=== PATIENT | male | born 1995 | race American Indian/Alaskan Native ===

== ENCOUNTER 2016-05-05 10:42 | Emergency (ER) | payer SELFPAY ==
[2016-05-05 10:51] VITALS: BP 138/80
--- NOTE | 2016-05-05 13:03 | Emergency Department Report ---
- General Chief Complaint: Upper Respiratory Infection Stated Complaint: NASAL CONGESTIONS/COLD/UPPER RESPITORY Time Seen by Provider: 05/05/16 12:05 Source: patient Mode of arrival: Ambulatory Limitations: No Limitations - History of Present Illness Initial Comments: 20-year-old male past medical history sinusitis presents with complaint of several days of worsening sinus congestion. Patient states he was taking Flonase and Zyrtec is seen with minimal to no relief of his congestion. Patient denies any fever or chills no earache denies any sore throat no chest pain no shortness of breath. Denies any nausea or vomiting or body aches. Had episode of sinusitis several months ago. States he has had clear nasal drainage bilaterally. Patient sounds nasal complaining of sinus congestion as I interview him. MD Complaint: rhinorrhea, nasal congestion Onset/Timin -: days(s) Severity: moderate Quality: aching Worsens With: nothing Associated Symptoms: rhinorrhea, nasal congestion - Related Data Previous Rx's Medication Instructions Recorded Last Taken Type Naproxen [Naprosyn TAB] 375 mg PO BID #20 tablet 02/08/14 Unknown Rx Cetirizine HCl [ZyrTEC] 10 mg PO DAILY #30 capsule 01/18/16 Unknown Rx Fluticasone [Flonase] 1 spray NS QDAY #1 bottle 01/18/16 Unknown Rx Ibuprofen [Motrin 600 MG tab] 600 mg PO Q8H PRN #20 tablet 01/18/16 Unknown Rx Amoxicillin/K Clav Tab [Augmentin 1 tab PO Q12HR #20 tab 05/05/16 Unknown Rx 875 mg] Azelastine 0.1% (Nf) [Astelin (Nf)] 137 mcg NS QDAY PRN #1 bottle 05/05/16 Unknown Rx Loratadine [Claritin] 10 mg PO DAILY PRN #14 tablet 05/05/16 Unknown Rx Naproxen [Naprosyn TAB] 375 mg PO BID PRN #30 tablet 05/05/16 Unknown Rx Allergies Allergy/AdvReac Type Severity Reaction Status Date / Time No Known Allergies Allergy Unverified 02/08/14 14:49 ED Review of Systems ROS: Stated complaint: NASAL CONGESTIONS/COLD/UPPER RESPITORY Other details as noted in HPI Constitutional: denies: chills, fever Eyes: denies: eye pain, eye discharge, vision change ENT: as per HPI, congestion. denies: ear pain, throat pain Respiratory: denies: cough, shortness of breath, wheezing Cardiovascular: denies: chest pain, palpitations Endocrine: no symptoms reported Gastrointestinal: denies: abdominal pain, nausea, diarrhea Genitourinary: denies: urgency, dysuria Musculoskeletal: denies: back pain, joint swelling, arthralgia Skin: denies: rash, lesions Neurological: denies: headache, weakness, paresthesias Psychiatric: denies: anxiety, depression Hematological/Lymphatic: denies: easy bleeding, easy bruising ED Past Medical Hx - Past Medical History Previous Medical History?: No - Surgical History Past Surgical History?: No - Social History Smoking Status: Current Every Day Smoker Substance Use Type: None - Medications Home Medications: Home Medications Medication Instructions Recorded Confirmed Last Taken Type Naproxen [Naprosyn TAB] 375 mg PO BID #20 tablet 02/08/14 Unknown Rx Cetirizine HCl [ZyrTEC] 10 mg PO DAILY #30 capsule 01/18/16 Unknown Rx Fluticasone [Flonase] 1 spray NS QDAY #1 bottle 01/18/16 Unknown Rx Ibuprofen [Motrin 600 MG tab] 600 mg PO Q8H PRN #20 tablet 01/18/16 Unknown Rx Amoxicillin/K Clav Tab [Augmentin 1 tab PO Q12HR #20 tab 05/05/16 Unknown Rx 875 mg] Azelastine 0.1% (Nf) [Astelin (Nf)] 137 mcg NS QDAY PRN #1 bottle 05/05/16 Unknown Rx Loratadine [Claritin] 10 mg PO DAILY PRN #14 tablet 05/05/16 Unknown Rx Naproxen [Naprosyn TAB] 375 mg PO BID PRN #30 tablet 05/05/16 Unknown Rx ED Physical Exam - General Limitations: No Limitations General appearance: alert, in no apparent distress - Head Head exam: Present: atraumatic, normocephalic - Eye Eye exam: Present: normal appearance - ENT ENT exam: Present: mucous membranes moist, other (patient has bilateral congestion in both nasal cavities on inspection no septal hematoma or abscess) - Neck Neck exam: Present: normal inspection - Respiratory Respiratory exam: Present: normal lung sounds bilaterally. Absent: respiratory distress - Cardiovascular Cardiovascular Exam: Present: regular rate, normal rhythm. Absent: systolic murmur, diastolic murmur, rubs, gallop - GI/Abdominal GI/Abdominal exam: Present: soft, normal bowel sounds - Rectal Rectal exam: Present: deferred - Extremities Exam Extremities exam: Present: normal inspection - Back Exam Back exam: Present: normal inspection - Neurological Exam Neurological exam: Present: alert, oriented X3 - Psychiatric Psychiatric exam: Present: normal affect, normal mood - Skin Skin exam: Present: warm, dry, intact, normal color. Absent: rash ED Course Vital Signs 05/05/16 10:48 Temperature 98 F Respiratory 16 Rate Blood Pressure 138/80 O2 Sat by Pulse 98 Oximetry ED Medical Decision Making - Medical Decision Making A/P: Acute sinusitis 1-Claritin, azelastine nasal spray, naproxen, Augmentin 875 twice a day 10 days 2- patient to follow up with his primary care doctor 3-I advised patient that if he develops severe fever or chills, purulent nasal drainage severe headache nausea or vomiting to return to the ED Critical care attestation.: If time is entered above; I have spent that time in minutes in the direct care of this critically ill patient, excluding procedure time. ED Disposition Clinical Impression: Acute sinusitis Qualifiers: Sinusitis location: frontal Recurrence: recurrent Qualified Code(s): J01.11 - Acute recurrent frontal sinusitis Disposition: DISCHARGED TO HOME OR SELFCARE Is pt being admited?: No Does the pt Need Aspirin: No Condition: Stable Instructions: Sinusitis (ED) Prescriptions: Azelastine 0.1% (Nf) [Astelin (Nf)] 137 mcg NS QDAY PRN #1 bottle PRN Reason: Congestion Amoxicillin/K Clav Tab [Augmentin 875 mg] 1 tab PO Q12HR #20 tab Loratadine [Claritin] 10 mg PO DAILY PRN #14 tablet PRN Reason: Congestion Naproxen [Naprosyn TAB] 375 mg PO BID PRN #30 tablet PRN Reason: Pain Referrals: PRIMARY CARE, [Primary Care Provider] - 3-5 Days DEANDRE MCMANUS MD [Staff Physician] - 3-5 Days Forms: Work/School Release Form(ED) Time of Disposition: 13:10
== END 2016-05-05 13:16 | disposition home or self-care (01) ==
LOC: ED 10:42
DX: J01.11 Acute recurrent frontal sinusitis (principal); F17.200 Nicotine dependence, unspecified, uncomplicated
CPT/HCPCS: 99282

== ENCOUNTER 2018-07-04 15:18 | Emergency (ER) | payer SELFPAY ==
--- NOTE | 2018-07-04 15:48 | Emergency Department Report ---
Chief Complaint: Upper Respiratory Infection Stated Complaint: NOSE BLEEDS/COLD/MUCUS Time Seen by Provider: 07/04/18 15:46 - HPI History of Present Illness: This is a 22 y.o. male that presents with cough and congestion for 3 days. Currently taking OTC cold and flu medication. - Exam Vital Signs: Vital Signs 07/04/18 15:34 Temperature 99.1 F Pulse Rate 83 Respiratory 18 Rate Blood Pressure 139/83 O2 Sat by Pulse 97 Oximetry MSE screening note: Focused history and physical exam performed. Due to findings the following was ordered: ACC for further evaluation ED Disposition for MSE Condition: Stable
[2018-07-04] MEDS ORDERED: MOTRIN PO ONE (20:10)
[2018-07-04] MEDS ORDERED: ZITHROMAX PO ONE (20:10)
[2018-07-04] MEDS ORDERED: DECADRON IM ONE (20:10)
[2018-07-04 20:14] VITALS: BP 116/56
--- NOTE | 2018-07-04 21:32 | Emergency Department Report ---
- General Chief Complaint: Upper Respiratory Infection Stated Complaint: NOSE BLEEDS/COLD/MUCUS Time Seen by Provider: 07/04/18 15:46 Source: patient Mode of arrival: Ambulatory Limitations: No Limitations - History of Present Illness Initial Comments: his is a 22 y.o. male that presents with cough and congestion for 3 days has hx of bronchitis. Currently taking OTC cold and flu medication. symptoms include productive cough brown yellow thick , noc fever, wheezing , sore throat. symptoms relieved by nothing symptoms exacerbated by activity and environmental exposure. MD Complaint: fever, cough, sore throat, rhinorrhea, nasal congestion Onset/Timin -: days(s) Severity: moderate Quality: dull Consistency: intermittent Improves With: nothing Worsens With: activity Context: sick contacts Associated Symptoms: fever, chills, rhinorrhea, nasal congestion, sore throat, cough, ear pain - Related Data Previous Rx's Medication Instructions Recorded Last Taken Type Naproxen [Naprosyn TAB] 375 mg PO BID #20 tablet 02/08/14 Unknown Rx Cetirizine HCl [ZyrTEC] 10 mg PO DAILY #30 capsule 01/18/16 Unknown Rx Fluticasone [Flonase] 1 spray NS QDAY #1 bottle 01/18/16 Unknown Rx Ibuprofen [Motrin 600 MG tab] 600 mg PO Q8H PRN #20 tablet 01/18/16 Unknown Rx Amoxicillin/K Clav Tab [Augmentin 1 tab PO Q12HR #20 tab 05/05/16 Unknown Rx 875 mg] Azelastine 0.1% (Nf) [Astelin (Nf)] 137 mcg NS QDAY PRN #1 bottle 05/05/16 Unknown Rx Loratadine [Claritin] 10 mg PO DAILY PRN #14 tablet 05/05/16 Unknown Rx Naproxen [Naprosyn TAB] 375 mg PO BID PRN #30 tablet 05/05/16 Unknown Rx ALBUTEROL Inhaler(NF) [VENTOLIN 2 puff IH Q4H PRN #1 inha 07/04/18 Unknown Rx Inhaler(NF)] Amoxicillin/K Clav Tab [Augmentin 1 tab PO BID 10 Days #20 tab 07/04/18 Unknown Rx 875 mg] Codeine Phosphate/Guaifenesin 5 ml PO TID PRN #120 ml 07/04/18 Unknown Rx [Guaifenesin-Codeine Syrup] Ibuprofen 800 mg PO TID PRN #30 tablet 07/04/18 Unknown Rx predniSONE [Deltasone] 40 mg PO QDAY 5 Days #10 tab 07/04/18 Unknown Rx Allergies Allergy/AdvReac Type Severity Reaction Status Date / Time No Known Allergies Allergy Verified 07/04/18 15:20 ED Review of Systems ROS: Stated complaint: NOSE BLEEDS/COLD/MUCUS Other details as noted in HPI Constitutional: chills. denies: fever Eyes: denies: eye pain, eye discharge, vision change ENT: ear pain, throat pain, congestion Respiratory: cough, wheezing. denies: shortness of breath Cardiovascular: denies: chest pain, palpitations Endocrine: no symptoms reported Gastrointestinal: denies: abdominal pain, nausea, diarrhea Genitourinary: denies: urgency, dysuria Musculoskeletal: denies: back pain, joint swelling, arthralgia Skin: denies: rash, lesions Neurological: denies: headache, weakness, paresthesias Psychiatric: denies: anxiety, depression Hematological/Lymphatic: denies: easy bleeding, easy bruising ED Past Medical Hx - Past Medical History Previous Medical History?: No - Surgical History Past Surgical History?: No - Social History Smoking Status: Current Every Day Smoker Substance Use Type: None - Medications Home Medications: Home Medications Medication Instructions Recorded Confirmed Last Taken Type Naproxen [Naprosyn TAB] 375 mg PO BID #20 tablet 02/08/14 Unknown Rx Cetirizine HCl [ZyrTEC] 10 mg PO DAILY #30 capsule 01/18/16 Unknown Rx Fluticasone [Flonase] 1 spray NS QDAY #1 bottle 01/18/16 Unknown Rx Ibuprofen [Motrin 600 MG tab] 600 mg PO Q8H PRN #20 tablet 01/18/16 Unknown Rx Amoxicillin/K Clav Tab [Augmentin 1 tab PO Q12HR #20 tab 05/05/16 Unknown Rx 875 mg] Azelastine 0.1% (Nf) [Astelin (Nf)] 137 mcg NS QDAY PRN #1 bottle 05/05/16 Unknown Rx Loratadine [Claritin] 10 mg PO DAILY PRN #14 tablet 05/05/16 Unknown Rx Naproxen [Naprosyn TAB] 375 mg PO BID PRN #30 tablet 05/05/16 Unknown Rx ALBUTEROL Inhaler(NF) [VENTOLIN 2 puff IH Q4H PRN #1 inha 07/04/18 Unknown Rx Inhaler(NF)] Amoxicillin/K Clav Tab [Augmentin 1 tab PO BID 10 Days #20 tab 07/04/18 Unknown Rx 875 mg] Codeine Phosphate/Guaifenesin 5 ml PO TID PRN #120 ml 07/04/18 Unknown Rx [Guaifenesin-Codeine Syrup] Ibuprofen 800 mg PO TID PRN #30 tablet 07/04/18 Unknown Rx predniSONE [Deltasone] 40 mg PO QDAY 5 Days #10 tab 07/04/18 Unknown Rx ED Physical Exam - General Limitations: No Limitations General appearance: alert, in no apparent distress - Head Head exam: Present: atraumatic, normocephalic - Eye Eye exam: Present: normal appearance, PERRL, EOMI - ENT ENT exam: Present: normal orophraynx, mucous membranes moist, TM's normal bilaterally, normal external ear exam - Expanded ENT Exam Expanded Ear exam: Present: normal external inspection, other (bilat maxillary sinus pain no swelling bilat turbinate boggy clear post nasal drip ) Mouth exam: Present: normal external inspection Teeth exam: Present: normal inspection Throat exam: Positive: tonsillar erythema, tonsillomegaly. Negative: tonsillar exudate, R peritonsillar mass, L peritonsillar mass, other (no stridor uvula midline ) - Neck Neck exam: Present: normal inspection, full ROM, lymphadenopathy. Absent: tenderness, meningismus, thyromegaly - Expanded Neck Exam Expanded Neck exam: Absent: tenderness, midline deformity, anterior neck swelling, thyroid mass, carotid bruit, tracheal deviation - Respiratory Respiratory exam: Present: normal lung sounds bilaterally. Absent: respiratory distress, wheezes, stridor, chest wall tenderness - Cardiovascular Cardiovascular Exam: Present: regular rate, normal rhythm, normal heart sounds. Absent: systolic murmur, diastolic murmur, rubs, gallop - GI/Abdominal GI/Abdominal exam: Present: soft, normal bowel sounds - Rectal Rectal exam: Present: deferred - Extremities Exam Extremities exam: Present: normal inspection - Back Exam Back exam: Present: normal inspection, full ROM. Absent: tenderness, CVA tenderness (R), CVA tenderness (L), rash noted - Neurological Exam Neurological exam: Present: alert, oriented X3, CN II-XII intact, normal gait, reflexes normal - Psychiatric Psychiatric exam: Present: normal affect, normal mood - Skin Skin exam: Present: warm, dry, intact, normal color. Absent: rash ED Course Vital Signs 07/04/18 07/04/18 15:34 20:13 Temperature 99.1 F 99 F Pulse Rate 83 64 Respiratory 18 16 Rate Blood Pressure 139/83 Blood Pressure 116/56 [Left] O2 Sat by Pulse 97 97 Oximetry ED Medical Decision Making - Medical Decision Making this is sinusitis with Bronchitis plan. augmentin, ibuprofen, flonase, benadryl, cheratussin, refill albuterol inhaler, follow up with pcp in 2-3 days return to ed if symptoms worsen. pt verbalized agreement and understanding of discharge plan. Critical care attestation.: If time is entered above; I have spent that time in minutes in the direct care of this critically ill patient, excluding procedure time. ED Disposition Clinical Impression: Bronchitis Sinusitis Qualifiers: Sinusitis location: maxillary Chronicity: acute Recurrence: non-recurrent Qualified Code(s): J01.00 - Acute maxillary sinusitis, unspecified Disposition: DC- TO HOME OR SELFCARE Is pt being admited?: No Does the pt Need Aspirin: No Condition: Stable Instructions: Acute Bronchitis (ED), Sinusitis (ED) Prescriptions: Amoxicillin/K Clav Tab [Augmentin 875 mg] 1 tab PO BID 10 Days #20 tab predniSONE [Deltasone] 40 mg PO QDAY 5 Days #10 tab Codeine Phosphate/Guaifenesin [Guaifenesin-Codeine Syrup] 5 ml PO TID PRN #120 ml PRN Reason: Cough Ibuprofen 800 mg PO TID PRN #30 tablet PRN Reason: pain fever ALBUTEROL Inhaler(NF) [VENTOLIN Inhaler(NF)] 2 puff IH Q4H PRN #1 inha PRN Reason: shortness of breath wheezing Referrals: [facility] [Outside] - 3-5 Days Forms: Work/School Release Form(ED) Time of Disposition: 21:43
== END 2018-07-04 21:51 | disposition home or self-care (01) ==
LOC: ED 15:18
DX: J40 Bronchitis, not specified as acute or chronic (principal); J01.00 Acute maxillary sinusitis, unspecified; F17.200 Nicotine dependence, unspecified, uncomplicated
CPT/HCPCS: 96372; 99282; J1100